=== PATIENT | female | born 1945 | race Caucasian/White ===

== ENCOUNTER 2016-11-18 06:35 | Emergency (ER) | payer OTHER, BC ==
[2016-11-18 06:57] LABS: BASOPHIL 0.7 % (0-2.0); EOSINOPHIL 1.1 % (0-4.5); MCH 32.5 pg (25.7-33.7); MCHC 33.2 g/dl (32.0-36.0); MEAN CELL VOLUME 98.1 fl (80-96); MEAN PLT VOLUME 8.7 fl (7.5-11.1); NEUTROPHILS 52.8 % (42.8-82.8); PLATELET COUNT 225 K/MM3 (134-434); RDW 13.7 % (11.6-15.6); WHITE BLOOD COUNT 5.6 K/mm3 (4.0-10.0)
[2016-11-18 07:14] VITALS: TEMP 97.9; BMI 22.8
[2016-11-18 07:24] LABS: ANION GAP 9 (8-16); CALCIUM 9.1 mg/dL (8.5-10.1); CO2 28 mmol/L (21-32); CREATININE 0.8 mg/dL (0.55-1.02); GLUCOSE,RANDOM 96 mg/dL (74-106); SGPT/ALT 31 U/L (12-78); TOT PROT 7.5 g/dl (6.4-8.2)
[2016-11-18 07:28] LABS: ALK PHOS 57 U/L (45-117); TROPONIN I < 0.02 ng/ml (0.00-0.05)
[2016-11-18] MEDS ORDERED: METOPROLOL TARTRATE 5 MG/5 ML VIAL ONE ×2 (07:34→08:35)
[2016-11-18 07:39] LABS: SGOT/AST 39 U/L (15-37)
[2016-11-18] MEDS ORDERED: METOPROLOL TARTRATE 5 MG/5 ML VIAL IVPUSH ONE ×2 (07:39→08:34)
--- NOTE | 2016-11-18 07:39 | PDOC ---
Attending Attestation - Medical Decision Making 11/18/16 10:28 Dr. Anthony was paged via phone answering service at 10:18 requesting a call back for doctor to doctor consult. Dr. Hoffman is on-call for Dr. Anthony and will call back at his earliest convenience. 11/18/16 10:52 Dr. Hoffman was paged a second time via phone answering service. The patient's case was discussed at 10:48. <Flavia Ramachandran - Last Filed: 11/18/16 10:52> - Resident Resident Name: Jovani Whitlock - ED Attending Attestation I have performed the following: I have examined & evaluated the patient, The case was reviewed & discussed with the resident, I agree w/resident's findings & plan, Exceptions are as noted - HPI HPI: 11/18/16 07:40 71y F hx of afib on xerolto, metoprolol presents with palpitations onset approximately 1 hrs ago with mild lightheadedness. No cp, sob, n/v, abd pain, back pain, diarrhea, melena, bpr. Pt sates she is complaint with her medications. On exam pt is well appearing in no disterss, lungs clear, lower extremities without edema, abd soft nontender, tachycardic and irregularly irergular vitals noted for tachycardia with normal BP ekg c/w afib pt on ekg monitor will give pt 5mg of IV metoprolol 11/18/16 10:18 pt required another 5mg of metoprolol, as her HR had improved from 150s to approx 120s-130s pt currently appears to be in sinus rhthm will marian Anthony regarding possible discharge vs obs as pt is already on xerolto 11/18/16 10:[address] schneider agreed with mangaement if pt back to sinus, and trop neg x 2, will dc with fu with dr. anthony as out patient - Physicial Exam PE: 11/18/16 18:00 see above - Medical Decision Making 11/18/16 18:00 see above <David Escalera - Last Filed: 11/18/16 18:00> Heart Score/ECG Review - ECG Impressions Comment:: 11/18/16 11:22 Twelve-lead EKG was performed and reviewed by me. eKG perfromed at 6:41 at 11/18, Irregularly irregular rate of [address] wave changes Twelve-lead EKG was performed and reviewed by me. eKG performed at 11:05 There is normal sinus rhythm with a normal rate. Rate of 63 The axis is normal. The intervals are normal. There are no ST or T wave abnormalities. 11/18/16 11:24 <David Escalera - Last Filed: 11/18/16 18:00>
--- NOTE | 2016-11-18 08:31 | PDOC ---
History of Present Illness <David Escalera - Last Filed: 11/18/16 13:24> - History of Present Illness Initial Comments: 11/18/16 08:12 The patient is a 71F with a PMH of a-fib and vertigo who presents with an episode of a-fib. The patient states that her symptoms started around 6am this morning. She woke up and felt her heart racing and knew it was an episode of a- fib. She has had a previous episode in January of 2014 and November 2014. The patient states that she came to the hospital and her a-fib was difficult to control, taking hours to return to normal sinus rhythm. The patient states that her a-fib occasionally comes and goes for a few seconds. Today, the patient was in bed and states the a-fib episode came out of nowhere, with no alleviating or exacerbating factors. Social: Drinks 1 bottle of wine/day Allergies: NKDA Surg: Outside Maintenance Worker surgeries <Jovani Whitlock - Last Filed: 11/18/16 14:18> - General Chief Complaint: Palpitations Stated Complaint: PALPITATION Time Seen by Provider: 11/18/16 07:00 Past History <David Escalera - Last Filed: 11/18/16 13:24> - Past Medical History Cardiac Disorders: Yes (afib) HTN: Yes Suicide Attempt (Hx): No - Surgical History Abdominal Surgery: Yes (CYSTOCELE AND RECTOCELE CORRECTION) - Immunization History Immunization Up to Date: Yes - Psycho/Social/Smoking Cessation Hx Anxiety: No Suicidal Ideation: No Smoking History: Never smoked Have you smoked in the past 12 months: No Information on smoking cessation initiated: No Hx Alcohol Use: No Drug/Substance Use Hx: No Substance Use Type: None Hx Substance Use Treatment: No <Jovani Whitlock - Last Filed: 11/18/16 14:18> - Past Medical History Allergies/Adverse Reactions: Allergies Allergy/AdvReac Type Severity Reaction Status Date / Time No Known Allergies Allergy Verified 11/18/16 06:47 Home Medications: Ambulatory Orders Rivaroxaban [Xarelto -] 20 mg PO DAILY #0 tablet 01/31/14 Metoprolol Succinate [Toprol XL -] 12.5 mg PO DAILY 11/18/16 Review of Systems - Review of Systems Able to Perform ROS?: Yes Is the patient limited Czech proficient: No Constitutional: No: Chills, Fever, Weakness Respiratory: No: Cough, Shortness of Breath Cardiac (ROS): Yes: Irregular Heart Rate, Lightheadedness, Palpitations. No: Chest Pain ABD/GI: No: Constipated, Diarrhea, Nausea, Vomiting, Other (ABD PAIN) : No: Burning, Dysuria, Discharge Neurological: No: Numbness, Tingling, Weakness <Jovani Whitlock - Last Filed: 11/18/16 14:18> *Physical Exam - Vital Signs Last Vital Signs Temp Pulse Resp BP Pulse Ox 97.9 F 128 H 18 128/86 97 11/18/16 06:47 11/18/16 08:27 11/18/16 08:27 11/18/16 08:27 11/18/16 08:27 <JwDavid - Last Filed: 11/18/16 13:24> - Vital Signs Last Vital Signs Temp Pulse Resp BP Pulse Ox 97.9 F 152 H 18 134/87 97 11/18/16 06:47 11/18/16 07:30 11/18/16 07:30 11/18/16 07:30 11/18/16 07:30 - Physical Exam General Appearance: Yes: Nourished, Appropriately Dressed. No: Apparent Distress, Mild Distress HEENT: positive: Normal Voice Respiratory/Chest: positive: Lungs Clear, Normal Breath Sounds. negative: Chest Tender, Labored Respiration, Rapid RR, Decreased Breath Sounds Cardiovascular: positive: S1, S2, Irregularly Irregular. negative: Edema, Systolic Murmur Gastrointestinal/Abdominal: positive: Normal Bowel Sounds, Flat, Soft. negative : Tender, Distended, Guarding, Rebound Integumentary: positive: Normal Color, Dry, Warm. negative: Swelling Neurologic: positive: Fully Oriented, Alert, Normal Mood/Affect, Normal Response , Motor Strength 5/5 <Jovani Whitlock - Last Filed: 11/18/16 14:18> Heart Score/ECG Review - ECG Intrepretation Rhythm: Irregularly Irregular - ECG Impressions Tachycardia: Afib w/rapid Vent rate <Jovani Whitlock - Last Filed: 11/18/16 14:18> ED Treatment Course - LABORATORY CBC & Chemistry Diagram: 11/18/16 06:40 11/18/16 06:40 - ADDITIONAL ORDERS Additional order review: Laboratory Results 11/18/16 11/18/16 11/18/16 09:19 07:46 07:46 INR 1.14 D Sodium Potassium Chloride Carbon Dioxide Anion Gap BUN Creatinine Creat Clearance w eGFR Random Glucose Calcium Total Bilirubin AST ALT Alkaline Phosphatase Creatine Kinase Troponin I Total Protein Albumin TSH Cancelled Urine Color Straw Urine Appearance Clear Urine pH 7.0 Urine Protein Negative Urine Glucose (UA) Negative Urine Ketones Negative Urine Blood Negative Urine Nitrite Negative Urine Bilirubin Negative Urine Urobilinogen Negative Ur Leukocyte Esterase 2+ H Urine RBC 1 Urine WBC 4 Ur Epithelial Cells Rare Urine Bacteria Few Urine Mucus Rare Digoxin 11/18/16 11/18/16 07:40 06:40 INR Sodium 140 Potassium 4.4 Chloride 103 Carbon Dioxide 28 Anion Gap 9 BUN 15 D Creatinine 0.8 Creat Clearance w eGFR > 60 Random Glucose 96 Calcium 9.1 Total Bilirubin 1.0 D AST 39 H D ALT 31 D Alkaline Phosphatase 57 Creatine Kinase 97 Troponin I < 0.02 Total Protein 7.5 Albumin 4.0 TSH 3.61 Urine Color Urine Appearance Urine pH Urine Protein Urine Glucose (UA) Urine Ketones Urine Blood Urine Nitrite Urine Bilirubin Urine Urobilinogen Ur Leukocyte Esterase Urine RBC Urine WBC Ur Epithelial Cells Urine Bacteria Urine Mucus Digoxin Cancelled 0.09 L 11/18/16 06:40 RBC 4.38 MCV 98.1 H MCHC 33.2 RDW 13.7 MPV 8.7 Neutrophils % 52.8 D Lymphocytes % 33.1 D Monocytes % 12.3 H Eosinophils % 1.1 D Basophils % 0.7 - Medications Given in the ED: ED Medications Discontinued Medications Generic Name Dose Route Start Last Admin Trade Name Erica PRN Reason Stop Dose Admin Metoprolol Tartrate 5 mg 11/18/16 07:39 11/18/16 07:30 Lopressor Injection - IVPUSH 11/18/16 07:40 5 mg ONCE ONE Administration Metoprolol Tartrate 5 mg 11/18/16 08:34 11/18/16 08:41 Lopressor Injection - IVPUSH 11/18/16 08:35 5 mg ONCE ONE Administration <JwDavid - Last Filed: 11/18/16 13:24> - LABORATORY CBC & Chemistry Diagram: 11/18/16 06:40 11/18/16 06:40 - ADDITIONAL ORDERS Additional order review: Laboratory Results 11/18/16 11/18/16 11/18/16 07:46 07:40 06:40 Sodium 140 Potassium 4.4 Chloride 103 Carbon Dioxide 28 Anion Gap 9 BUN 15 D Creatinine 0.8 Creat Clearance w eGFR > 60 Random Glucose 96 Calcium 9.1 Total Bilirubin 1.0 D AST 39 H D ALT 31 D Alkaline Phosphatase 57 Creatine Kinase 97 Troponin I < 0.02 Total Protein 7.5 Albumin 4.0 TSH Cancelled Digoxin Cancelled 11/18/16 06:40 RBC 4.38 MCV 98.1 H MCHC 33.2 RDW 13.7 MPV 8.7 Neutrophils % 52.8 D Lymphocytes % 33.1 D Monocytes % 12.3 H Eosinophils % 1.1 D Basophils % 0.7 - Medications Given in the ED: ED Medications Discontinued Medications Generic Name Dose Route Start Last Admin Trade Name Freq PRN Reason Stop Dose Admin Metoprolol Tartrate 5 mg 11/18/16 07:39 11/18/16 07:30 Lopressor Injection - IVPUSH 11/18/16 07:40 5 mg ONCE ONE Administration <Jovani Whitlock - Last Filed: 11/18/16 14:18> Medical Decision Making - Medical Decision Making 11/18/16 08:45 Patient is a 71F with a known history of a-fib who is presenting to the ED with stable a-fib with RVR. The patient is currently stable and I have informed her to let us know if she starts experiencing symptoms of chest pain, SOB, headache , lightheadedness, or any other symptoms. Workup is in progress. 11/18/16 10:02 Patient states she is feeling better. Patient has a HR in the 65-70's. Will repeat EKG and contact the patient's mill feeder for recs. Pt received metoprolol x 2 and is now in normal sinus rhythm. 11/18/16 14:17 CXR is negative, trop is negative x 2. Will follow up with Dr. Bob Tellez. Patient is ready for d/c. <Jovani Whitlock - Last Filed: 11/18/16 14:18> *DC/Admit/Observation/Transfer - Discharge Dispostion Admit: No <David Escalera - Last Filed: 11/18/16 13:24> - Discharge Dispostion Admit: No - Attestations Physician Attestion: 11/18/16 08:48 I, Dr. Jovani Whitlock, attest that this document has been prepared under my direction and personally reviewed by me in its entirety. I further attest, that it accurately reflects all work, treatment, procedures and medical decision -making performed by me. <Jovani Whitlock - Last Filed: 11/18/16 14:18> Diagnosis at time of Disposition: Atrial fibrillation Qualifiers: Atrial fibrillation type: paroxysmal Qualified Code(s): I48.0 - Paroxysmal atrial fibrillation - Discharge Dispostion Disposition: HOME Condition at time of disposition: Improved - Referrals Referrals: Lina Hernandez MD [Primary Care Provider] - Bob Tellez MD [Staff Physician] - - Patient Instructions Printed Discharge Instructions: DI for Atrial Fibrillation Additional Instructions: Return to the emergency department immediately with ANY new, persistent or worsening symptoms incluging palptiations, chest pain, shortness of breath. You MUST call and follow up with your doctor tomorrow for further evaluation of your symptoms. Results were discussed with you. Please make sure your doctor reviews the results of your emergency evaluation. If you had any xrays during your visit, it was read preliminarily by myself, a Radiologist will review it and if there are any additional findings we will call you. Print Language: URDU
[2016-11-18 08:36] LABS: INR 1.14 (0.82-1.09); PROTHROMBIN TIME (PATIENT) 12.6 SEC (9.98-11.88)
[2016-11-18 08:54] LABS: DIGOXIN LEVEL 0.09 ng/ml (0.8-2.0); THYROID STIMULATING HORMONE 3.61 uIU/ml (0.358-3.74)
[2016-11-18 09:46] LABS: URINE APPEARANCE CLEAR; URINE BILIRUBIN NEGATIVE (NEGATIVE); URINE BLOOD NEGATIVE (NEGATIVE); URINE COLOR STRAW; URINE GLUCOSE (UA) NEGATIVE (NEGATIVE); URINE KETONE NEGATIVE (NEGATIVE); URINE NITRITE NEGATIVE (NEGATIVE); URINE PROTEIN NEGATIVE (NEGATIVE); URINE UROBILINOGEN NEGATIVE mg/dL (0.2-1.0)
[2016-11-18 09:47] LABS: URINE LEUK ESTERASE 2+ (NEGATIVE)
[2016-11-18 09:49] LABS: URINE BACTERIA FEW /hpf (NONE SEEN); URINE MUCUS RARE; URINE RBC 1 /hpf (0-3); URINE WBC 4 /hpf (3-5)
[2016-11-18 13:36] LABS: TROPONIN I < 0.02 ng/ml (0.00-0.05)
[2016-11-18 14:03] VITALS: BP 130/83; PULSE 72
--- NOTE | 2016-11-20 09:23 | EKG ---
Test Reason : Blood Pressure : / mmHG Vent. Rate : 063 BPM Atrial Rate : 063 BPM P-R Int : 180 ms QRS Dur : 086 ms QT Int : 404 ms P-R-T Axes : 049 -04 049 degrees QTc Int : 413 ms NORMAL SINUS RHYTHM SEPTAL INFARCT , AGE UNDETERMINED ABNORMAL ECG WHEN COMPARED WITH ECG OF 18-NOV-2016 06:41, SINUS RHYTHM HAS REPLACED ATRIAL FIBRILLATION VENT. RATE HAS DECREASED BY [address] NO LONGER DEPRESSED IN INFERIOR LEADS Confirmed by NICCI ANTHONY MD ([id number]) on 11/20/2016 9:22:51 AM Referred By: Confirmed By:NICCI ANTHONY MD
--- NOTE | 2016-11-20 09:28 | EKG ---
Test Reason : Blood Pressure : / mmHG Vent. Rate : 136 BPM Atrial Rate : 119 BPM P-R Int : 000 ms QRS Dur : 088 ms QT Int : 298 ms P-R-T Axes : 000 -13 056 degrees QTc Int : 448 ms ATRIAL FIBRILLATION WITH RAPID VENTRICULAR RESPONSE NONSPECIFIC ST ABNORMALITY ABNORMAL ECG WHEN COMPARED WITH ECG OF 13-JAN-2015 20:52, ATRIAL FIBRILLATION HAS REPLACED SINUS RHYTHM VENT. RATE HAS INCREASED BY [address] NOW DEPRESSED IN INFERIOR LEADS T WAVE INVERSION NO LONGER EVIDENT IN ANTERIOR LEADS Confirmed by NICCI ANTHONY MD ([id number]) on 11/20/2016 9:27:58 AM Referred By: Confirmed By:NICCI ANTHONY MD
== END 2016-11-18 15:00 | disposition home or self-care (01) ==
LOC: JER 06:35
PROC: 3E033GC Introduction of Other Therapeutic Substance into Peripheral Vein, Percutaneous Approach (ICD-10-PCS; principal; 2016-11-18)
DX: I48.0 Paroxysmal atrial fibrillation (principal); Z79.01 Long term (current) use of anticoagulants
CPT/HCPCS: 36415; 71010-TC; 80053; 80162; 81003; 81015; 82550; 84443; 84484; 85025; 85610; 93005; 93010; 96374; 96376; 99283-25

== ENCOUNTER 2019-02-21 07:46 | Emergency (ER) | payer OTHER, BC ==
[2019-02-21 07:51] VITALS: BP 117/78; PULSE 90; TEMP 98.2; BMI 22.8
[2019-02-21 08:28] LABS: BASO % 0.7 % (0-2.0); EOS % 0.4 % (0-4.5); HEMATOCRIT 41.1 % (32.4-45.2); HEMOGLOBIN 13.6 GM/dL (10.7-15.3); LYMPH % 17.5 % (8-40); MCH 32.8 pg (25.7-33.7); MCHC 33.2 g/dl (32.0-36.0); MEAN CELL VOLUME 98.8 fl (80-96); MEAN PLT VOLUME 8.9 fl (7.5-11.1); NEUT % 70.4 % (42.8-82.8); PLATELET COUNT 233 K/MM3 (134-434); RBC 4.16 M/mm3 (3.60-5.2); RDW 15.2 % (11.6-15.6)
--- NOTE | 2019-02-21 08:34 | PDOC ---
History of Present Illness - General Chief Complaint: Palpitations Stated Complaint: RAPID HEART BEAT Time Seen by Provider: 02/21/19 07:53 History Source: Patient Exam Limitations: No Limitations - History of Present Illness Initial Comments: 02/21/19 13:26 HPI: 74F PMH pAF (on xarelto, metoprolol) c/o palpitations that started around 05:00 this AM. Pt took 2x 30mg Cardizem and currently not feeling sx. Pt had similar episode on 12/29/18 in [facility] and had a serious adverse rxn to Flecainide, wore a holter monitor for 2 weeks w/o significant findings per pt. Dr. Moon is her journalism intern. Before the 12/29/18 episode, pts last episode of palpitations was 2 years prior. Denies chest pain, sob, f/c/n/v, anxiety, numbness/tingling/weakness, headache/dizzy/lightheadedness/changes in hearing/ vision, dysuria/frequency, bloody stool. Denies increased caffeine use ( normally has 2 cups Nespresso). PMH: episodic AF per pt, denies other MEDs: Xarelto, metoprolol, cardizem prn Allergies reviewed - Flecainide PCP Dr. Hernandez Tavern Keeper Dr. Moon Past History - Past Medical History Allergies/Adverse Reactions: Allergies Allergy/AdvReac Type Severity Reaction Status Date / Time flecainide Allergy Verified 02/21/19 07:51 Home Medications: Ambulatory Orders Metoprolol Succinate [Toprol XL -] 25 mg PO DAILY 11/18/16 Rivaroxaban [Xarelto -] 20 mg PO DAILY #21 tablet 11/18/16 Diltiazem [Cardizem -] 30 mg PO ONCE PRN 02/21/19 Metoprolol Succinate 12.5 mg PO HS 02/21/19 Cardiac Disorders: Yes (afib) COPD: No HTN: Yes - Surgical History Abdominal Surgery: Yes (CYSTOCELE AND RECTOCELE CORRECTION) - Immunization History Immunization Up to Date: Yes - Psycho Social/Smoking Cessation Hx Smoking History: Former smoker Have you smoked in the past 12 months: No If you are a former smoker, when did you quit?: 35 years Information on smoking cessation initiated: No Hx Alcohol Use: No Drug/Substance Use Hx: No Substance Use Type: None Hx Substance Use Treatment: No Review of Systems - Review of Systems Able to Perform ROS?: Yes Comments:: 02/21/19 13:26 ROS: CONSTITUTIONAL: Denies F / C HEENT: Denies headache, lightheadedness, dizziness, changes in vision / hearing RESP: Denies SOB CARD: Endorsed palpitations. Denies chest pain GI: Denies N / V / D, abdominal pain, bloody stool : Denies dysuria, frequency PSYCH: Denies anxiety NEURO: Denies numbness, tingling, weakness Is the patient limited Sammarinese proficient: No *Physical Exam - Vital Signs Last Vital Signs Temp Pulse Resp BP Pulse Ox 98.2 F 90 18 117/78 98 02/21/19 07:49 02/21/19 07:49 02/21/19 07:49 02/21/19 07:49 02/21/19 08:07 - Physical Exam Comments: 02/21/19 13:26 PE: VSS - HR 70s on monitor at time of exam GEN: Well appearing, NAD, comfortable. AAOx3 HEENT: NC/AT. No facial asymmetry. Normal voice. Supple neck w/ FROM. CV: S1/S2, RRR, no m/r/g LUNG: CTAB, no wheezes, crackles, rales, rhonchi. GI: soft, ndnt, +BS, no guarding, no rebound. No masses. EXTREMITIES: 2+ distal pulses. No LE edema. No obvious deformities of all extremities. SKIN: warm, dry, normal turgor PSYCH: normal mood and affect NEURO: Moving all extremities well. ED Treatment Course - LABORATORY CBC & Chemistry Diagram: 02/21/19 08:15 02/21/19 08:15 Medical Decision Making - Medical Decision Making 02/21/19 08:21 MDM: 74F PMH pAF c/o palpitations since 5am. Denies current sx s/p 60mg Cardizem - CBC, CMP, Cardiac, TSH - EKG, CXR 02/21/19 09:49 CXR clear by ED team interpretation EKG HR 78 [place] 158 QRS 84 QTc 417 Normal [place] NSR Labs reviewed Trop neg. Patient asymptomatic, never complained of chest pain, sx resolved w/ use of PRN cardizem as directed by journalism intern Discharged home w/ cardiology f/u and return precautions Discharge - Discharge Information Problems reviewed: Yes Clinical Impression/Diagnosis: Palpitations Condition: Stable Disposition: HOME - Admission No - Follow up/Referral Referrals: Lina Hernandez MD [Primary Care Provider] - Bob Tellez MD [Staff Physician] - - Patient Discharge Instructions Patient Printed Discharge Instructions: DI for Arrhythmias, DI for Palpitations Additional Instructions: Please continue to take your home medications as prescribed. Follow up with your Tavern Keeper in the next 7 days regarding your symptoms and this ED visit. IMMEDIATELY return to the Emergency Department if you experience any of the following: - Nonresolving / worsening / continued palpitations - Chest pain - Shortness of breath - ANYTHING that concerns you - Post Discharge Activity
[2019-02-21 09:02] LABS: BLOOD UREA NITROGEN 11.9 mg/dL (7-18); CALCIUM 9.3 mg/dL (8.5-10.1); CREATININE 0.7 mg/dL (0.55-1.3); POTASSIUM 4.5 mmol/L (3.5-5.1); TOT PROT 7.5 g/dl (6.4-8.2)
--- NOTE | 2019-02-21 09:45 | PDOC ---
Attending Attestation - Resident Resident Name: Bobo Lazar - ED Attending Attestation I have performed the following: I have examined & evaluated the patient, The case was reviewed & discussed with the resident, I agree w/resident's findings & plan, Exceptions are as noted - HPI HPI: 02/21/19 09:41 74 years old A. fib on anticoagulation had paroxysmal A. fib this morning took her prescribed Cardizem did not work 1 hour later took her second dose still having palpitations came to the emergency department upon arrival symptoms had stopped This regimen is regimen recommended by her hr advisor At no point did she have chest pain shortness of breath she is currently asymptomatic and feels well ROS: A complete review of 10 out of 10 review of systems is taken and is negative apart from what is previously mentioned below and in the HPI. - Physicial Exam PE: 02/21/19 09:42 Vitals: Triage Vital signs reviewed General Appearance: No acute distress, well nourished well developed, Head: Atraumatic, Chest Wall: Nontender Cardiac: Regular rate and rhythym, no murmurs, no rubs, no gallops, Lungs: Clear to auscultation bilateral, good air movement bilaterally, Abdomen: Soft, non distended, normal bowel sounds, non tender to palpation Extremities: Full range of motion to all extremities, no cyanosis, clubbing, or edema Skin: Warm and dry, no rashes or lesions, no rash, no petechiae Psych: Normal mood, normal affect - Medical Decision Making 02/21/19 09:43 Well-appearing no apparent distress took her home Cardizem now with resolved paroxysmal A. fib Her EKG now demonstrates normal sinus rhythm at [address] elevations or T wave inversions Interpreted by me. We have discussed the case with the on-call hr advisor patient is stable for outpatient follow-up Findings, the need for follow-up and strict return instructions discussed with patient.
--- NOTE | 2019-02-21 13:24 | EKG ---
Test Reason : Blood Pressure : / mmHG Vent. Rate : 078 BPM Atrial Rate : 078 BPM P-R Int : 158 ms QRS Dur : 084 ms QT Int : 366 ms P-R-T Axes : 053 -13 053 degrees QTc Int : 417 ms POOR DATA QUALITY, INTERPRETATION MAY BE ADVERSELY AFFECTED NORMAL SINUS RHYTHM WHEN COMPARED WITH ECG OF 18-NOV-2016 11:05, NO SIGNIFICANT CHANGE WAS FOUND Confirmed by KULDIP GARCIA MD ([id number]) on 02/21/2019 1:24:16 PM Referred By: Confirmed By:KULDIP GARCIA MD
== END 2019-02-21 10:05 | disposition home or self-care (01) ==
LOC: JER 07:46
DX: I48.0 Paroxysmal atrial fibrillation (principal); Z79.01 Long term (current) use of anticoagulants; I10 Essential (primary) hypertension; R00.2 Palpitations; Z87.891 Personal history of nicotine dependence; Z88.8 Allergy status to other drugs, medicaments and biological substances
CPT/HCPCS: 36415; 71045-TC-FY; 80053; 84443; 84484; 85025; 93005; 93010; 99283-25

== ENCOUNTER 2020-03-21 13:02 | Emergency (ER) | payer OTHER, BC ==
[2020-03-21 13:13] VITALS: BMI 22.5
[2020-03-21 13:58] LABS: BASO % 0.7 % (0-2.0); EOS % 0.3 % (0-4.5); HEMATOCRIT 41.9 % (32.4-45.2); HEMOGLOBIN 13.9 GM/dL (10.7-15.3); LYMPH % 23.2 % (8-40); MCH 33.3 pg (25.7-33.7); MCHC 33.2 g/dl (32.0-36.0); MEAN CELL VOLUME 100.3 fl (80-96); MONO % 11.4 % (3.8-10.2); NEUT % 64.4 % (42.8-82.8); PLATELET COUNT 222 K/MM3 (134-434); RBC 4.18 M/mm3 (3.60-5.2); RDW 13.7 % (11.6-15.6); WHITE BLOOD COUNT 3.9 K/mm3 (4.0-10.0)
[2020-03-21 14:10] LABS: INR 2.06 (0.83-1.09); PROTHROMBIN TIME (PATIENT) 24.4 SEC (9.7-13.0)
[2020-03-21 14:13] LABS: ACTIVATED PTT 42.9 SECONDS (25.2-36.5)
[2020-03-21 14:20] LABS: CHLORIDE 102 mmol/L (98-107); POTASSIUM 4.4 mmol/L (3.5-5.1)
[2020-03-21 14:21] LABS: CALCIUM 9.5 mg/dL (8.5-10.1)
[2020-03-21 14:22] LABS: ALBUMIN 4.1 g/dl (3.4-5.0); BLOOD UREA NITROGEN 10.9 mg/dL (7-18); CO2 29 mmol/L (21-32); GLUCOSE,RANDOM 91 mg/dL (74-106)
[2020-03-21 14:25] LABS: CREATININE 0.8 mg/dL (0.55-1.3); SGOT/AST 18 U/L (15-37); SGPT/ALT 18 U/L (13-61)
[2020-03-21 14:27] LABS: BILIRUBIN,TOTAL 1.5 mg/dL (0.2-1); TOT PROT 7.6 g/dl (6.4-8.2)
[2020-03-21 14:28] LABS: ALK PHOS 49 U/L (45-117)
[2020-03-21 14:31] LABS: N-TERMINAL BNP 361.4 pg/ml (5-125)
[2020-03-21 15:03] LABS: ANION GAP 6 MMOL/L (8-16); SODIUM 137 mmol/L (136-145)
[2020-03-21] MEDS ORDERED: LOSARTAN POTASSIUM 25 MG TABLET PO ONE (16:22)
[2020-03-21] MEDS ORDERED: LOSARTAN POTASSIUM 50 MG TABLET ONE (16:23)
[2020-03-21 18:58] VITALS: BP 125/83; PULSE 62; TEMP 97.2
== END 2020-03-21 18:45 | disposition home or self-care (01) ==
LOC: JER 13:02
DX: R42 Dizziness and giddiness (principal); R03.0 Elevated blood-pressure reading, without diagnosis of hypertension
CPT/HCPCS: 36415; 71046-TC-FY; 80053; 82550; 83735; 83880; 84443; 84484; 85025; 85610; 85730; 93005; 93010; 99285-25

== ENCOUNTER 2021-09-09 14:07 | Emergency (ER) | payer OTHER, BC ==
[2021-09-09 14:17] VITALS: BMI 18.2
[2021-09-09] MEDS ORDERED: SODIUM CHLORIDE 0.9% 500 ML INFUS.BAG IV ONE ×2 (14:38→16:02)
[2021-09-09 15:07] LABS: BASO % 0.4 % (0-2.0); EOS % 0.2 % (0-4.5); HEMATOCRIT 42.3 % (32.4-45.2); LYMPH % 21.2 % (8-40); MEAN CELL VOLUME 96.9 fl (80-96); MEAN PLT VOLUME 8.9 fl (7.5-11.1); MONO % 9.6 % (3.8-10.2); NEUT % 68.6 % (42.8-82.8); PLATELET COUNT 246 10^3/uL (134-434); RBC 4.36 M/mm3 (3.60-5.2); RDW 14.5 % (11.6-15.6); WHITE BLOOD COUNT 6.5 K/mm3 (4.0-10.0)
[2021-09-09 15:15] LABS: INR 2.22 (0.83-1.09); PROTHROMBIN TIME (PATIENT) 25.7 SEC (9.7-13.0)
[2021-09-09 15:18] LABS: ACTIVATED PTT 40.6 SECONDS (25.2-36.5)
[2021-09-09 15:29] LABS: EPI CELLS 23 /uL (0-25.1); HYALINE CASTS 17 /uL (0-3.1); URINE APPEARANCE CLOUDY; URINE BACTERIA 25 /uL (0-1359); URINE BILIRUBIN NEGATIVE (NEGATIVE); URINE COLOR DK YELLOW; URINE GLUCOSE (UA) NEGATIVE (NEGATIVE); URINE KETONE 1+ (NEGATIVE); URINE LEUK ESTERASE 1+ (NEGATIVE); URINE NITRITE NEGATIVE (NEGATIVE); URINE PROTEIN TRACE (NEGATIVE); URINE WBC 33 /uL (0-25.8)
[2021-09-09 15:37] LABS: CALCIUM 9.2 mg/dL (8.5-10.1)
[2021-09-09 15:38] LABS: URINE RBC 84 /uL (0-23.9)
[2021-09-09 15:38] LABS: ALBUMIN 3.6 g/dl (3.4-5.0); BLOOD UREA NITROGEN 12.2 mg/dL (7-18); MAGNESIUM 2.2 mg/dL (1.8-2.4)
[2021-09-09 15:40] LABS: PHOSPHOROUS 3.5 mg/dL (2.5-4.9)
[2021-09-09 15:41] LABS: CREATININE 0.9 mg/dL (0.55-1.3)
[2021-09-09 15:42] LABS: BILIRUBIN,TOTAL 0.9 mg/dL (0.2-1); TOT PROT 6.8 g/dl (6.4-8.2)
[2021-09-09] MEDS ORDERED: METOPROLOL TARTRATE 5 MG/5 ML VIAL IVPUSH ONE (16:01)
[2021-09-09] MEDS ORDERED: METOPROLOL TARTRATE 25 MG TABLET (FP) PO ONE (16:02)
[2021-09-09] MEDS ORDERED: METOPROLOL TARTRATE 5 MG/5 ML VIAL ONE (16:10)
[2021-09-09] MEDS ORDERED: METOPROLOL TARTRATE 25 MG TABLET (FP) ONE (16:10)
[2021-09-09 18:48] VITALS: BP 138/97; PULSE 100; TEMP 98.5
== END 2021-09-09 18:49 | disposition home or self-care (01) ==
LOC: JER 14:07
PROC: 3E033GC Introduction of Other Therapeutic Substance into Peripheral Vein, Percutaneous Approach (ICD-10-PCS; principal; 2021-09-09)
DX: R53.1 Weakness (principal); R00.0 Tachycardia, unspecified; I95.9 Hypotension, unspecified
CPT/HCPCS: 36415; 71045-TC-FY; 80053; 81003; 82962; 83735; 84100; 84484; 85025; 85610; 85730; 87086; 87186; 93005; 93010; 96374; 99285-25; C9803-CS; U0003; U0005

== ENCOUNTER 2023-05-13 16:29 | Emergency (ER) | payer OTHER, BC ==
[2023-05-13 16:34] VITALS: BP 164/83; PULSE 91; RESP 18; TEMP 98.7; BMI 22.8
== END 2023-05-13 18:11 | disposition home or self-care (01) ==
LOC: JER 16:29
DX: M79.651 Pain in right thigh (principal); R23.0 Cyanosis
CPT/HCPCS: 93971-TC; 99284-25